=== PATIENT | female | born 2000 | race Caucasian/White ===

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

== ENCOUNTER 2019-04-22 13:31 | Emergency (ER) | payer MEDICAID, SELFPAY ==
[2019-04-22 13:32] VITALS: BP 122/70; PULSE 112; RESP 16; TEMP 37; O2SAT 95; BMI 42.5
--- NOTE | 2019-04-22 13:35 | ED.RN ---
PT REPORTS CHEST WALL PAIN WITH COUGHING.
--- NOTE | 2019-04-22 13:45 | EKG12_ITS ---
Test Reason : CP Blood Pressure : / mmHG Vent. Rate : 099 BPM Atrial Rate : 099 BPM P-R Int : 146 ms QRS Dur : 094 ms QT Int : 328 ms P-R-T Axes : 027 024 025 degrees QTc Int : 420 ms Normal sinus rhythm Normal ECG Confirmed by MARTY BORREGO MD ([id number]), editor trade journal PRISCA HONRE ([id number]) on 04/25/2019 9:54:54 AM Referred By: BELKIS Confirmed By:MARTY BORREGO MD
[2019-04-22] MEDS: Albuterol 2.5 MG/3 ML VIAL.NEB. INHALATION (14:08)
[2019-04-22] MEDS: Ipratropium/Albuterol Sulfate 3 ML AMPUL.NEB INHALATION (14:08)
[2019-04-22 14:09] VITALS: PULSE 100; RESP 26
--- NOTE | 2019-04-22 14:09 | ED.VISSUMM ---
- ER Visit Summary Date of Service: 04/22/19 Chief Complaint: Cough and shortness of breath History of Present Illness: The patient is a 19 F who notes that her son has a upper respiratory infection and is being seen. She states that 3 days ago she did have a runny nose. She developed shortness of breath and some anterior chest discomfort beginning yesterday. This is worsened. She is a former smoker. She denies any fevers. She notes the cough is productive. Patient states she has no history of asthma has never been diagnosed with chronic bronchitis or emphysema. The patient states that her anterior chest is quite sore especially with coughing Physical Examination: Afebrile vital signs stable Gen: Well-nourished well-developed Head: Normocephalic atraumatic Eyes: Perrl EOMI ENT: TMs clear + rhinorrhea moist mucous membranes Neck: Supple no lymphadenopathy no JVD nontender CVS: Regular rate tachycardic rhythm no murmurs normal S1-S2 Respiratory: No distress patient has bilaterally diminished breath sounds and expiratory wheezing chest nontender Abdomen: Soft nontender nondistended normal bowel sounds no masses Back: Nontender Extremity: Nontender no edema Skin: Normal color no rash Neuro: alert orientated ?3 CN II-XII intact normal strength sensation reflexes gait cerebellar Psych: Normal affect normal mood Emergency Department Course and Treatment: Patient received breathing treatments and prednisone. Repeat examination was obtained. The wheezing has resolved. The patient will be discharged home with albuterol MDI and prednisone. Patient to return if worsening or concerns Impression: 1. Acute viral respiratory illness 2. Acute bronchospasm This note was generated with [employer] dictation software. It may contain incorrect words, spelling, and punctuation that were not noted in review of the chart prior to signing ED Disposition - Plan for ED Patient: Disposition: Home or Assisted Living Instructions: BRONCHITIS with Wheezing (Adult) Prescriptions: predniSONE tablet 60 mg PO DAILY #12 tab Transmission Status: Received by BENJI EVANS RD Albuterol Inhaler [Ventolin Hfa] 2 puff INHALATION Q4H PRN PRN #1 inhaler PRN Reason: Wheezing Transmission Status: Received by BENJI EVANS RD Referrals: Lamont Read MD [Primary Care Provider] - As Needed
--- NOTE | 2019-04-22 14:12 | RAD_ITS ---
STUDY: X-RAY CHEST REASON FOR EXAM: Female, 19 years old. Wheezing. Cough and chest congestion. TECHNIQUE: PA and lateral views of the chest. COMPARISON: Comparison is made with prior study September 05, 2017. FINDINGS: Mild increased markings in the lingular segment of the left upper lobe suggestive of early infiltrate. There is no demonstrated pleural abnormality. Normal size heart. Normal mediastinum and cory. Normal visualized pulmonary arteries. Normal visualized aortic arch and descending thoracic aorta. Normal visualized thoracic spine. Normal visualized ribs, clavicles, and shoulders. There is no demonstrated abnormality of the visualized soft tissue structures of the upper abdomen. RAD/Chest PA and Lateral IMPRESSION: Findings suggestive of early infiltrate in the lingular segment of the left upper lobe. Electronically Signed: Leno Cortes, at 15:09 EDT , Service support ,
[2019-04-22] MEDS: predniSONE 20 MG Tablet 60 MG PO (14:49)
[2019-04-22 15:10] VITALS: PULSE 115; O2SAT 97
== END 2019-04-22 15:10 | disposition home or self-care (01) ==
PROVIDERS: Emergency Provider Emergency Medicine; Family Provider Pediatrics; PCP Pediatrics
DX: J06.9 Acute upper respiratory infection, unspecified (principal); J98.01 Acute bronchospasm; Z87.891 Personal history of nicotine dependence
CPT/HCPCS: 71046; 93005; 94640; 99283

== ENCOUNTER 2019-06-28 19:51 | Emergency (ER) | payer MEDICAID, SELFPAY ==
[2019-06-28 19:52] VITALS: BP 142/86; PULSE 97; RESP 18; TEMP 36.3; O2SAT 95; BMI 41.8
[2019-06-28] MEDS: 0.9% Normal Saline 1,000 ML 1000 ML IV (20:37)
[2019-06-28] MEDS: Morphine 4 MG/ML Syringe IV (20:38)
[2019-06-28] MEDS: Ondansetron 4 MG/2 ML Vial IV (20:38)
[2019-06-28 20:48] LABS: Absolute Lymphocyte Count 2.89 X10^3/uL (0.83-4.51); Absolute Neutrophil Count 9.5 X10^3/uL (2.0-7.7); Basophil# 0.06 X10^3/uL; Basophil% 0.4 % (0-1); Eosinophil# 0.27 X10^3/uL; Hemoglobin 13.5 g/dL (12.0-15.0); Lymphocyte # 2.89 X10^3/ul (4.0); Lymphocyte % 20.9 % (19-41); Mean Corp Hgb Conc 32.9 g/dL (32-36); Mean Corpuscular Hgb 28.4 pg (27.0-32.0); Mean Corpuscular Volume 86.1 fL (81-99); Mean Platelet Vol. 10.2 fl (6.2-12.0); Monocyte% 7.2 % (0-10); NRBC Flagged by Analyzer 0 % (0-5); Neutrophil # 9.52 X10^3/uL (2.7-7.7); Neutrophil % 68.9 % (47-70); Platelet Count 259 K/mm3 (150-450); RBC Distribution Width CV 13.3 % (11.6-14.6); RBC Distribution Width SD 41.7 fl (35.1-43.9); Red Blood Count 4.76 M/mm3 (4.2-5.4); White Blood Count 13.8 K/mm3 (4.4-11.0)
[2019-06-28 21:02] LABS: Anion Gap 7 (5-15); BUN 12 mg/dL (7-18); BUN/Creat Ratio 15.9 RATIO (10-20); Calcium,Total 9.1 mg/dL (8.5-10.1); Chloride 107 mmol/L (98-107); Creatinine, Serum 0.76 mg/dL (0.55-1.02); EST Glomerular Filtration Rate 103 mL/min (>60); Est Glom Filt Rate - Afr Amer 125 mL/min (>60); Estimated Creatinine Clearance 119.11 ml/min; Glucose 104 mg/dL (74-106); Potassium 3.4 mmol/L (3.5-5.1); Sodium Level 141 mmol/L (136-145)
[2019-06-28 21:22] LABS: Bacteria 0 SEEN /hpf (None Seen); Mucous, Urine 0 SEEN /hpf (<or=2+); Red Blood Cells-Urine 0 SEEN /hpf (0-5); White Blood Cells 0 SEEN /hpf (0-5)
[2019-06-28 21:26] LABS: Color, Urine Yellow (Yellow); Glucose, Dipstick Normal (Normal); Ketone-Dipstick 5 mg/dl (Negative); Leukocyte Esterase-Dipstick Negative /ul (Negative); Nitrite-Dipstick Negative (Negative); Occult Blood-Urine Negative /ul (Negative); Protein-Dipstick Negative (Negative); Specific Gravity, Urine 1.015 (1.002-1.030); Urine Bilirubin Dipstick Negative (Negative); Urine Clarity Clear (Clear); Urine Urobilinogen Normal (Normal); Urine pH 6.5 (5.0 - 8.0)
[2019-06-28 21:27] LABS: Internal QC Validated? YES +Cl - CLEAR BKGD; Pregnancy, Urine Negative Negative
[2019-06-28 21:35] LABS: Squamous Epithelial Cells - UA 0-5 SEEN /hpf (5-10)
--- NOTE | 2019-06-28 21:38 | CT_ITS ---
STUDY: CT ABDOMEN AND PELVIS WITH CONTRAST REASON FOR EXAM: Female, 19 years old. Lower abdominal pain RADIATION DOSAGE (If Supplied By Facility): CTDIvol = ( 17.08 ) mGy, DLP = ( 1279.55 ) mGycm TECHNIQUE: Transaxial images were obtained from the dome of the diaphragm to the symphysis pubis without oral contrast. IV Isovue 370 100 was administered. Sagittal and coronal images were reconstructed. Individualized dose optimization techniques were used for this CT. COMPARISON: None. FINDINGS: The visualized lung bases are unremarkable. Normal liver. No intrahepatic biliary duct dilatation or liver mass. Normal gallbladder and extrahepatic biliary system. Normal spleen. Normal pancreas. Normal bilateral adrenal glands. Normal right kidney. Normal left kidney. No hydronephrosis or renal masses. No large stones. Normal visualized stomach. Normal small intestine. Normal colon. No bowel dilatation or obstruction. No free air or free fluid. The appendix is visualized and appears normal. Normal abdominal aorta. Normal inferior vena cava. Normal retroperitoneum. Normal urinary bladder. An IUD is present in the uterus. Grossly unremarkable uterus. There is mild to moderate prominence of the left fallopian tube and adnexa with a small amount of inflammatory stranding suggesting inflammation/infection. A small amount of free fluid is present in the lower pelvis maximally measures 7.44 x 3.55 cm. This is compatible with serous fluid rather than an abscess. A tiny calcified nodule is present near the endocervical junction in the anterior myometrium. Normal abdominal wall. Normal osseous structures. CT/Abdomen/Pelvis W IV Cont ONLY IMPRESSION: Pelvic inflammatory disease suspected 1. There is mild to moderate prominence of the left fallopian tube and adnexa with a small amount of inflammatory stranding suggesting inflammation/infection. 2. A small amount of free fluid is present in the lower pelvis maximally measures 7.44 x 3.55 cm. This is compatible with serous fluid rather than an abscess. Electronically Signed: Vineet Roberts MD at 22:45 EST , Service support ,
--- NOTE | 2019-06-28 23:06 | ED.DCSUM_ITS ---
- ER Visit Summary Date of Service: 06/28/19 Chief Complaint: Abdominal pain History of Present Illness: The patient is a 19 F with lower abdominal pain that started this morning. The pain is in her suprapubic area and does not radiate. Associated with nausea, vomiting, and diarrhea. Denies any urinary or WEIGHT GUESSER symptoms. She does have a history of IUD placement and is concerned that the pain might be from this. This was placed 9 months ago, and she has not had other issues with it so far. Physical Examination: Afebrile and vital signs unremarkable. Lower abdomen is tender to palpation in the suprapubic region. No guarding or rebound. Test Results: White count 13.8, potassium 3.4, urinalysis unremarkable. test negative. Emergency Department Course and Treatment: Patient presents with suprapubic pain. I was concerned for UTI, however she did not have the classic symptoms. Unfortunately, her lab work showed a leukocytosis and no evidence of urinary infection. Further evaluation was indicated. CT was performed. This showed left fallopian tube inflammation/infection concerning for PID. There is also suspected serous pelvic fluid. I spoke with the patient. She has no concern for STD. I did inform her that I will check for gonorrhea and chlamydia. Testing is pending. We will treat with antibiotics. She received doxycycline and ceftriaxone. She will follow-up with her HEAD OF [employer]ORE [employer]PERATIONS for recheck. She was advised that some patients can require hospitalization. She will return if worse or if new issues develop. Risks such as infertility were discussed. She will talk to her HEAD OF [employer]ORE [employer]PER[employer] about her or not she needs to remove her IUD. Patient was prescribed Motrin, Zofran, and doxycycline. She will not be breast- feeding. Treatment Plan: As above Disposition: Discharge Impression: 1. Pelvic inflammatory disease This note was generated with [place] [employer] software. It may contain incorrect words, spelling, and punctuation that were not noted in review of the chart prior to signing ED Disposition - Plan for ED Patient: Referrals: Care Physician,No Primary [Primary Care Provider] -
[2019-06-28 23:09] VITALS: BP 130/64; PULSE 82; RESP 16; O2SAT 95
--- NOTE | 2019-06-28 23:10 | ED.DEP ---
ED Disposition - Plan for ED Patient: Instructions: What Is Pelvic Inflammatory Disease? Prescriptions: Doxycycline 100 mg PO BID #28 cap Prescription Printed Ibuprofen [Motrin] 800 mg PO TID PRN PRN #20 tab PRN Reason: Pain Or Fever Prescription Printed Ondansetron [Zofran Odt] 4 mg PO Q8H PRN PRN #10 tab PRN Reason: Nausea Prescription Printed Additional Instructions: Follow up with your OBGYN
[2019-06-28] MEDS: Doxycycline 100 MG CAPSULE PO (23:27)
[2019-06-28] MEDS: Ceftriaxone 500 MG Vial 250 MG IM (23:27)
[2019-06-28 23:53] VITALS: BP 130/64; PULSE 82; RESP 16; O2SAT 95
[2019-06-29 00:54] LABS: Chlamydia Trachomatis by PCR Negative (Negative); Neisserai gonorrhoeae by PCR Negative (Negative)
[2019-06-29 00:55] LABS: Probe Check PASS; Sample Adequacy Control PASS; Specimen Processing Control PASS
== END 2019-06-28 23:53 | disposition home or self-care (01) ==
LOC: ED 20:35
PROVIDERS: Emergency Provider Emergency Medicine
DX: N73.9 Female pelvic inflammatory disease, unspecified (principal); R11.2 Nausea with vomiting, unspecified; R19.7 Diarrhea, unspecified; Z97.5 Presence of (intrauterine) contraceptive device; Z72.0 Tobacco use
CPT/HCPCS: 74177; 80048; 81001; 81025; 85025; 87491; 87591; 96361; 96372; 96374; 96375; 99284; J7030; Q9967; A4216; J2405

== ENCOUNTER 2020-04-02 22:48 | Emergency (ER) | payer MEDICAID, SELFPAY ==
[2020-04-02 22:49] VITALS: BP 134/82; PULSE 90; RESP 18; TEMP 36.7; O2SAT 97; BMI 43.0
--- NOTE | 2020-04-02 23:15 | RAD_ITS ---
STUDY: X-RAY - LEFT FOOT CLINICAL: Female, 20 years old. FALL DOWN STAIRS TODAY, L FOOT PAIN TECHNIQUE: 3 view(s) of the foot. COMPARISON: None. FINDINGS: Normal talus, calcaneus, and tarsal bones. Normal visualized subtalar, talonavicular, calcaneocuboid, tarsal and tarsometatarsal articulations. Normal metatarsi. Normal metatarsophalangeal joint of the great toe. Normal tibial and fibular sesamoid bones. Normal interphalangeal joint of the great toe. Normal phalanges of the great toe. Normal second through fifth metatarsophalangeal joints. Normal interphalangeal joints and phalanges of the lesser toes. The soft tissue structures are unremarkable. RAD/Foot min 3 Views IMPRESSION: No acute osseous injury is evident. Electronically Signed: Geronimo Grier MD at 23:47 EDT Tel , Service support ,
--- NOTE | 2020-04-02 23:15 | RAD_ITS ---
STUDY: X-RAY - LEFT ANKLE REASON FOR EXAM: Female, 20 years old. FALL DOWN STAIRS TODAY, L ANKLE PAIN TECHNIQUE: 3 view(s) of the ankle. COMPARISON: None. FINDINGS: Normal visualized distal tibia and fibula. Normal medial and lateral malleoli. Normal tibiotalar articulation and ankle mortise. Normal visualized talus and calcaneus. The visualized subtalar, talonavicular, calcaneocuboid and tarsal articulations are normal. The soft tissue structures are unremarkable. RAD/Ankle min 3 Views IMPRESSION: No acute osseous injury is evident. Electronically Signed: Geronimo Grier MD at 23:46 EDT Tel , Service support ,
[2020-04-02] MEDS: Naproxen 500 MG Tablet PO (23:18)
[2020-04-03 00:16] VITALS: PULSE 82; RESP 5; O2SAT 98
--- NOTE | 2020-04-03 00:17 | ED.VISSUMM ---
- ER Visit Summary Date of Service: 04/03/20 Chief Complaint: Left ankle and foot pain History of Present Illness: The patient is a 20 F with no primary care physician. She reports approximate 1 hour ago she fell down 3 steps. She reports that she has an isolated injury to her left ankle and foot. She has pain is 1010 at worst and 7-10 currently. She describes as a sharp. Is worsened by walking relieved by rest. Denies any paresthesias distally. She denies any other injuries. No blow to the head or loss of consciousness. No neck or back pain. Physical Examination: Vitals: Stable. Afebrile. Neck: No vertebral tenderness. Full ROM without difficulty. Cleared by NEXUS criteria. Back: No vertebral tenderness. General: A&O x 3. NAD. Cardiovascular exam: Regular rate and rhythm, no murmur, rub or gallop. Respiratory exam: Chest nontender. No crepitus. Clear to auscultation bilaterally. No wheezes or stridor. Abdominal exam: Soft, nontender, nondistended, normal bowel sounds. No pain in RUQ or LUQ specifically. No peritoneal signs. Extremity: Moderate tenderness palpation over the lateral malleolus and just distal to this. She has no pain over the base of fifth metatarsal or proximal fibula. 2+ dorsalis pedis pulse. Test Results: Clinical Impression(s) from Imaging Studies Ankle X-Ray 04/02/20 23:15 IMPRESSION: No acute osseous injury is evident. Electronically Signed: Geronimo Grier MD at 23:46 EDT Tel , Service support , Foot X-Ray 04/02/20 23:15 IMPRESSION: No acute osseous injury is evident. Electronically Signed: Geronimo Grier MD at 23:47 EDT Tel , Service support , Emergency Department Course and Treatment: Patient was treated with naproxen and placed on crutches. Treatment Plan: Patient will be discharged instructed to follow-up Dr. Terry Cuadra in 1 week if not improving. Return to the emergency department for any worsening symptoms. Disposition: To home in improved and stable condition. Impression: 1. Fall. 2. Left ankle sprain. This note was generated with [place] [employer] dictation software. It may contain incorrect words, spelling, and punctuation that were not noted in review of the chart prior to signing ED Disposition - Plan for ED Patient: Disposition: Home or Assisted Living Instructions: ED Sprain Ankle Prescriptions: Naproxen [Naprosyn] 500 mg PO BID #14 tab Prescription Printed Referrals: Terry Moreno MD [STAFF PHYSICIAN] - 1 Week if not improving
== END 2020-04-03 00:36 | disposition home or self-care (01) ==
LOC: ED 23:28
PROVIDERS: Emergency Provider Emergency Medicine
DX: S93.402A Sprain of unspecified ligament of left ankle, initial encounter (principal); W10.9XXA Fall (on) (from) unspecified stairs and steps, initial encounter; Y93.9 Activity, unspecified; Y92.9 Unspecified place or not applicable; Y99.9 Unspecified external cause status
CPT/HCPCS: 73610; 73630; 99284

== ENCOUNTER 2020-11-20 08:01 | Emergency (ER) | payer MEDICAID, SELFPAY ==
[2020-11-20 08:02] VITALS: BP 141/70; PULSE 99; RESP 18; TEMP 35.4; O2SAT 98; BMI 43.0
--- NOTE | 2020-11-20 08:10 | ED.DCSUM_ITS ---
History of Present Illness Chief Complaint: Lower Extremity Injury Informant: Patient Occurred: Today - JPTA Fall down steps #: 1 Location: left ankle Quality of Pain: Aching Current Severity: Moderate Maximum Severity: Severe Worsened by: bearing weight Relieved by: remaining still Associated Symptoms: Negative for: Parasthesias, Weakness, Loss of function, Inability to ambulate, Loss of consciousness, Amnesia Narrative: Patient was coming down the stairs on the last 1, her new puppy had urinated on the floor and she did not realize it, as she stepped down off of the last step her foot slipped on the puddle of urine, going out ahead of her, and she fell with her left lower extremity flexed at the knee and internally rotated to her ankle without behind and outside, the majority of her pain is in the Achilles in the lateral aspect of her ankle. Very significant trouble bearing weight but she was able to hobble. No other injuries. No anticoagulation. - Past Medical History (1) Anxiety and depression Status: Chronic (2) PTSD (post-traumatic stress disorder) Status: Chronic Past Medical History - Allergies and Home Meds Allergies/Adverse Reactions: Allergies AMHARIC DRESSSING Allergy (Uncoded 11/20/20 08:04) Hives Primary Care Physician: Pancho Soler MD [Primary Care Provider] - Smoking Status: Former smoker Review of Systems General: Denies: Chills, Fever, Sweats Musculoskeletal: Reports: Extremity Pain. Denies: Neck pain, Back pain Skin: Denies: Rash, Wounds Neurological: Denies: Headache, Weakness, Numbness Physical Exam Vital Signs/Narrative: Vital Signs Temp Pulse Resp BP Pulse Ox 11/20/20 08:02 95.8 F L 99 18 141/70 H 98 Inital Vital Signs reviewed: Yes General: Well nourished, Well developed, Obese, - - No acute distress Head: Normocephalic, Atraumatic Extremeties: Limited range of motion left ankle, good range of motion all other joints. Tender at the lateral malleolus but not the medial or the base of the fifth metatarsal, or the calcaneus, or anywhere else in the foot. There is some mild swelling around the lateral malleolus. The rest of the tib-fib is nontender. Skin: Normal color, No rash, No Trauma - Skin intact Neurological: Alert, Oriented x3, Cranial nerves II-XII grossly intact, Normal Strength, Normal Sensation Psychological: Normal affect, Normal Mood Diagnostic/Tx/Re-eval Clinical Impression(s) from Imaging Studies Ankle X-Ray 11/20/20 08:15 IMPRESSION: Chronic avulsive irregularity at the dorsal aspect of navicular. No demonstrated recent fracture. Electronically Signed: Kayode Noriega MD at 8:38 EDT Tel , Service support , - Medical Decision Making My interpretation 3 view x-ray of the left ankle shows no acute fractures or dislocations. Patient was reassured, I think it would be reasonable to treat her as an ankle sprain. Whenever I forcibly invert her foot it recreates her significant lateral ankle pain. Placed in an Aircast, given crutches, ice pack, Naprosyn, and a prescription. ED Disposition - Plan for ED Patient: Disposition: Home or Assisted Living Diagnosis: Left ankle sprain Instructions: ED Ankle Sprain (Adult) Prescriptions: Naproxen [Naprosyn] 500 mg PO BID PRN #20 tablet Transmission Status: Pending to [id number] Referrals: Pancoh Soler MD [Primary Care Provider] - 1 Week if not improving
--- NOTE | 2020-11-20 08:15 | RAD_ITS ---
STUDY: X-RAY - LEFT ANKLE REASON FOR EXAM: Left ankle pain, left ankle injury. TECHNIQUE: 3 view(s) of the ankle. COMPARISON: Radiographs 04/02/2020. FINDINGS: Normal visualized distal tibia and fibula. Normal medial and lateral malleoli. Normal tibiotalar articulation and ankle mortise. Normal visualized talus and calcaneus. There is chronic avulsive irregularity at the dorsal aspect of the navicular as on the prior study. The visualized subtalar, talonavicular, calcaneocuboid and tarsal articulations are normal. There is mild soft tissue swelling overlying the lateral malleolus. RAD/Ankle min 3 Views IMPRESSION: Chronic avulsive irregularity at the dorsal aspect of navicular. No demonstrated recent fracture. Electronically Signed: Kayode Noriega MD at 8:38 EDT Tel , Service support ,
[2020-11-20] MEDS: Naproxen 500 MG Tablet PO (09:09)
[2020-11-20 09:10] VITALS: BP 122/71; PULSE 68; RESP 16
== END 2020-11-20 09:40 | disposition home or self-care (01) ==
PROVIDERS: Emergency Provider Emergency Medicine; PCP Family Medicine
DX: S93.402A Sprain of unspecified ligament of left ankle, initial encounter (principal); W10.9XXA Fall (on) (from) unspecified stairs and steps, initial encounter; Y93.9 Activity, unspecified; Y92.9 Unspecified place or not applicable; Y99.9 Unspecified external cause status; F32.9 Major depressive disorder, single episode, unspecified; F41.9 Anxiety disorder, unspecified; F43.12 Post-traumatic stress disorder, chronic; X58.XXXA Exposure to other specified factors, initial encounter; Z79.899 Other long term (current) drug therapy; E66.9 Obesity, unspecified; Z87.891 Personal history of nicotine dependence
CPT/HCPCS: 73610; 99284

== ENCOUNTER 2021-08-09 13:27 | Emergency (ER) | payer MEDICAID, SELFPAY ==
[2021-08-09 13:28] VITALS: BP 105/71; PULSE 109; RESP 18; TEMP 35.9; O2SAT 97; BMI 45.1
--- NOTE | 2021-08-09 13:58 | EX.ED.DYSGE1 ---
HPI History of Present Illness Chief Complaint: Sore Throat Informant: patient Narrative Narrative: 21-year-old female states that she woke up during the night and had a scratchy throat. But this morning it was more painful and she had a fever. Patient states that it looks very red. She notes no cough no runny nose vomiting or diarrhea. She states she had strep throat earlier in the year. She called her work and told him that she believes she has strep throat and they said that she needs to have a Covid test because she had a fever. [facility] Medical History (Updated 08/09/21 @ 14:[address] Rudy Spring DO) Anxiety and depression PTSD (post-traumatic stress disorder) Home Medications bupropion HCl (smoking deter) 300 mg PO DAILY 04/02/20 [History Last Taken Unknown] buspirone 10 mg PO TID 04/02/20 [History Last Taken Unknown] escitalopram oxalate 10 mg PO DAILY 04/02/20 [History Last Taken Unknown] trazodone 100 mg PO QHS 04/02/20 [History Last Taken Unknown] naproxen 500 mg PO BID #14 tab 04/03/20 [Rx Last Taken Unknown] naproxen 500 mg PO BID PRN #20 tablet 11/20/20 [Rx Last Taken Unknown] penicillin V potassium 500 mg PO BID #20 tab 08/09/21 [Rx Last Taken Unknown] Allergy/AdvReac Type Severity Reaction Status Date / Time SLOVENIAN DRESSSING Allergy Hives Uncoded 08/09/21 13:28 Social History (Updated 08/09/21 @ 13:[address] Rudy Spring DO) Smoking Status: Never smoker substance use type: does not use ROS ROS ED Constitutional Constitutional ED: Reports fever(s); Denies chills or weight loss Eyes Eyes: Denies change in vision or diplopia ENT ENT ED: Reports sore throat; Denies ear pain or rhinorrhea Cardiovascular Cardiovascular: Denies chest pain, orthopnea, palpitations or racing heartbeat Respiratory/Chest Respiratory/Chest: Denies cough, dyspnea or orthopnea Gastrointestinal Gastrointestinal: Denies abdominal pain, diarrhea, nausea or vomiting Genitourinary Genitourinary ED: Denies dysuria, hematuria or urinary frequency Musculoskeletal Musculoskeletal: Denies arthralgias or myalgias Integumentary Denies abscess or rash Neurologic Neurologic: Denies headache(s) or weakness Psychiatric Psychiatric: Denies anxiety, depression, suicidal ideation or suicidal thoughts Endocrine Endocrinology: Denies polydipsia, polyphagia or polyuria Allergic/Immunologic Allergic/Immunologic ED: Denies mouth swelling, tongue swelling or urticaria EXAM Physical Exam Const Vital Signs: 08/09/21 13:28 Temperature 96.6 F L Temperature Source Temporal Pulse Rate 109 H Respiratory Rate 18 Blood Pressure 105/71 Blood Pressure Mean 82 Pulse Ox 97 Oxygen Delivery Method Room Air Positive well nourished, well developed and obese General Appearance ED: well developed Nutritional Appearance: obese HEENT Reports normocephalic, head/scalp atraumatic, TM's clear and moist mucous membranes HEENT Narrative: Oral pharyngeal erythema with bilateral tonsillar exudate and swelling. No obvious abscess seen. Negative for trauma Tympanic Membrane ED: Yes TM's clear Eyes PERRL and EOMs intact bilaterally Neck supple and no JVD Neck Narrative: Anterior lymphadenopathy Resp normal respiratory effort and clear to auscultation bilaterally Cardio regular rate, regular rhythm and no murmurs GI normal to inspection, nondistended, normoactive bowel sounds and non-tender Palpation: soft Back/Spine no CVA tenderness and normal ROM Extremity normal to inspection General Extremety ED: Negative for edema General Extremity: Negative for edema Neuro oriented x3 and CN's II-XII intact bilaterally Sensorium / Orientation: alert Motor Exam: strength 5/5 throughout Psych mental status grossly normal Mood & Affect: Negative for depressed or tearful Skin no rashes or lesions noted and no wounds MDM MDM MDM Narrative Medical decision making narrative: The patient meets [facility] criteria for strep throat. She needs a Covid test I am not can to make her wait for the results. I am going to start her on penicillin. She will receive a dose of Decadron here in the department. Discharge Plan Triage Chief Complaint: Sore Throat ED Provider: Rudy Spring Dx/Rx/DC Orders Clinical Impression: Acute streptococcal pharyngitis Instructions: ED Pharyngitis, Strep (Presumed) Prescriptions: New penicillin V potassium 500 MG tablet 500 mg PO BID Qty: 20 RF: 0 No Action buspirone 5 MG tablet 10 mg PO TID RF: 0 trazodone 100 MG tablet 100 mg PO QHS RF: 0 escitalopram oxalate 10 MG tablet 10 mg PO DAILY RF: 0 bupropion HCl (smoking deter) 150 MG tablet extended release 12 hr 300 mg PO DAILY RF: 0 naproxen 500 MG tablet 500 mg PO BID Qty: 14 RF: 0 naproxen 500 MG tablet 500 mg PO BID PRN Qty: 20 RF: 0 Primary Care Provider: Pancho Soler Referrals: Pancho Soler MD [Primary Care Provider] - As Needed Disposition Disposition: Home, Self Care
[2021-08-09] MEDS: dexAMETHasone 10 MG/ML Vial PO.IVFORM (14:08)
== END 2021-08-09 14:18 | disposition home or self-care (01) ==
LOC: ED 14:05
PROVIDERS: Emergency Provider Emergency Medicine; PCP Family Medicine
DX: J02.0 Streptococcal pharyngitis (principal); Z20.822 Contact with and (suspected) exposure to COVID-19; F43.10 Post-traumatic stress disorder, unspecified; F32.A Depression, unspecified; F41.9 Anxiety disorder, unspecified; E66.9 Obesity, unspecified; Z79.1 Long term (current) use of non-steroidal anti-inflammatories (NSAID); Z79.899 Other long term (current) drug therapy
CPT/HCPCS: 87426; 99283

== ENCOUNTER → 2022-05-10 | Outpatient (CLI) | payer MEDICAID, SELFPAY ==
[2022-05-10 12:23] LABS: Absolute Lymphocyte Count 2.03 X10^3/uL (0.83-4.51); Absolute Neutrophil Count 9.3 X10^3/uL (2.0-7.7); Basophil# 0.04 X10^3/uL; Basophil% 0.3 % (0-1); Eosinophils% 0.8 % (0-5); Hematocrit 38.6 % (37-47); Lymphocyte # 2.03 X10^3/ul (0.83-4.51); Lymphocyte % 16.6 % (19-41); Mean Corp Hgb Conc 33.7 g/dL (32-36); Mean Corpuscular Hgb 29.3 pg (27.0-32.0); Mean Corpuscular Volume 86.9 fL (81-99); Mean Platelet Vol. 10.7 fl (6.2-12.0); Monocyte# 0.71 X10^3/uL; Monocyte% 5.8 % (0-10); NRBC Flagged by Analyzer 0 % (0-5); Neutrophil # 9.26 X10^3/uL (2.7-7.7); Platelet Count 280 K/mm3 (150-450); RBC Distribution Width CV 13.2 % (11.6-14.6); RBC Distribution Width SD 41.3 fl (35.1-43.9); Red Blood Count 4.44 M/mm3 (4.2-5.4); White Blood Count 12.2 K/mm3 (4.4-11.0)
[2022-05-10 13:19] LABS: HIV - WCH Non-Reactive (Nonreactive); Hepatitis B Surface Antigen Non-Reactive (Nonreactive); Hepatitis C Antibody Non-Reactive (Nonreactive); Rubella IgG Equiv (Nonreactive); Syphilis Antibodies Non-reactive
[2022-05-11 09:08] LABS: V-Zoster IgG (Immunity) < 135 index (Immune >165)
[2022-05-11 21:07] LABS: Chlamydia By Nucleic Acid AMP Negative (Negative)
[2022-05-12 16:21] LABS: Gonococcus By Nucleic Acid AMP Negative (Negative)
== END | disposition home or self-care (01) ==
LOC: WOBLAB 10:53
PROVIDERS: PCP Family Medicine; Visit Provider Obstetrics & Gynecology
DX: Z34.81 Encounter for supervision of other normal pregnancy, first trimester (principal)
CPT/HCPCS: 36415; 85025; 86703; 86762; 86780; 86787; 86803; 87086; 87088; 87340; 87491; 87591

== ENCOUNTER 2022-06-06 18:27 | Emergency (ER) | payer MEDICAID, SELFPAY ==
[2022-06-06 18:28] VITALS: BP 120/58; PULSE 95; RESP 16; TEMP 36.4; O2SAT 98; BMI 42.3
[2022-06-06 20:04] VITALS: BP 132/82; PULSE 66; RESP 12; O2SAT 97
--- NOTE | 2022-06-06 20:28 | EDS_ITS ---
HPI HPI - Female History of Present Illness Chief Complaint: Detail of Chief Complaint: Hyperemesis gravidarum Informant: patient Associated Symptoms Associated Symptoms: Negative for Dysuria, Frequency, Urgency or Hematuria Test: Positive P: 1 Ab: 0 Narrative Narrative: ShePatient is a 22-year-old who presents with hyperemesis gravidarum. She is present on Phenergan. States Phenergan's not helping. She has decreased urine output. She had a 15 pound weight loss. She is 12 weeks gestation. She lost 40 pounds with her first due to hyperemesis gravidarum. She denies fever, chills night sweats. She denies headache, visual, ocular auditory symptoms. Denies cardiac or respiratory symptoms. Prior similar symptoms: Yes Recent Illness/Hospitalization: No PFSH PFSH Medical History Anxiety and depression PTSD (post-traumatic stress disorder) Home Medications ondansetron 4 mg disintegrating tablet 4 mg PO Q8H PRN PRN Nausea #20 tabs 06/06/22 [Rx Last Taken Unknown] Allergy/AdvReac Type Severity Reaction Status Date / Time NEPALESE DRESSSING Allergy Hives Uncoded 06/06/22 18:30 Social History (Updated 06/06/22 @ 21:[address] Som Arndt MD) household members: significant other and children Smoking Status: Never smoker substance use type: does not use ROS ROS ED Constitutional Constitutional ED: Denies chills, fever(s), subjective or sweats Eyes Eyes: Denies blurry vision, change in vision or diplopia ENT ENT ED: Denies ear pain, rhinorrhea or sore throat Cardiovascular Cardiovascular: Denies chest pain, palpitations or racing heartbeat Respiratory/Chest Respiratory/Chest: Denies cough, dyspnea or dyspnea on exertion Gastrointestinal Gastrointestinal: Reports nausea and vomiting; Denies abdominal pain, constipation, diarrhea or melena Genitourinary Genitourinary ED: Denies dysuria, hematuria or urinary frequency Musculoskeletal Musculoskeletal: Denies arthralgias, myalgias or neck pain Integumentary Denies abscess or Abrasions Neurologic Neurologic: Reports weakness; Denies headache(s) or paresthesias Psychiatric Psychiatric: Denies anxiety Endocrine Endocrinology: Denies heat intolerance, polydipsia, polyphagia or polyuria Hematologic/Lymphatic Hematologic/Lymphatic: Denies easy bleeding or easy bruising EXAM Physical Exam Const Vital Signs: 06/06/22 18:28 06/06/22 20:04 Temperature 97.5 F L Temperature Source Temporal Pulse Rate 95 66 Respiratory Rate 16 12 Blood Pressure 120/58 L 132/82 H Blood Pressure Mean 78 98 Pulse Ox 98 97 Oxygen Delivery Method Room Air Room Air Positive well nourished, well developed and obese General Appearance ED: well developed; Negative for pallor Nutritional Appearance: obese HEENT Reports TM's clear and dry mucous membranes Tympanic Membrane ED: Yes TM's clear Mouth ED: Yes dry mucous membranes Mouth: dry mucous membranes Eyes PERRL and EOMs intact bilaterally General Eye ED: Negative for pale conjunctiva or scleral icterus Neck no lymphadenopathy, supple and no JVD Chest Wall inspection of chest normal Resp normal respiratory effort and clear to auscultation bilaterally Cardio regular rate, regular rhythm, S1 normal heart sound, no murmurs and no JVD GI normal to inspection, nondistended, normoactive bowel sounds, soft to palpation, non-tender, non-distended and no masses Back/Spine no CVA tenderness Extremity normal to inspection and full ROM Neuro oriented x3, CN's II-XII intact bilaterally and no sensory deficits noted Sensorium / Orientation: alert Motor Exam: strength 5/5 throughout Psych mental status grossly normal Skin no rashes or lesions noted and no wounds General Skin Exam: Negative for jaundice or pallor MDM MDM MDM Narrative Medical decision making narrative: Patient with hyperemesis gravidarum. We will treat with IV Zofran since her sales manager [place] has not treated her with Zofran yet. Liter of normal saline was ordered. Patient metabolic panel to assess renal function, CO2 anion gap and electrolytes. UA was obtained to assess for ketones. Patient was reassessed. She reports marked improvement. She able drink a can of Sprite. She is presently eating mashed potatoes. Lab Data Attestation: I reviewed the patient's lab results. Labs: Laboratory Results - last 24 hr 06/06/22 06/06/22 20:15 20:50 Sodium 137 Potassium 3.2 L Chloride 106 Carbon Dioxide 24.0 Anion Gap 7 BUN 6 L Creatinine 0.73 Estim Creat Clear Calc 116.55 Est GFR (MDRD) Af Amer 126 Est GFR (MDRD) Non-Af 104 BUN/Creatinine Ratio 8.2 L Glucose 92 Calcium 9.3 Urine Color Yellow Urine Clarity Clear Urine pH 6.5 Ur Specific [place] 1.015 Urine Protein Negative Urine Glucose (UA) Normal Urine Ketones Negative Urine Occult Blood Negative Urine Nitrite Negative Urine Bilirubin Negative Urine Urobilinogen 1 H Ur Leukocyte Esterase Negative Discharge Plan Triage Chief Complaint: ED Provider: Som Arndt Dx/Rx/DC Orders Clinical Impression: Hyperemesis gravidarum before end of 22 week gestation, dehydration Instructions: ED Hyperemesis Gravidarum Prescriptions: New ondansetron [ondansetron] 4 mg tablet,disintegrating 4 mg PO Q8H PRN PRN (Reason: Nausea) Qty: 20 0RF Primary Care Provider: Pancho Soler Referrals: Pancho Soler MD [Primary Care Provider] - Jaci Archer MD [Med Staff - Active Staff] - 3-5 Days if not improving Disposition Disposition: Home, Self Care
[2022-06-06] MEDS: 0.9% Normal Saline 1,000 ML 1000 ML IV (20:31)
[2022-06-06] MEDS: Ondansetron 4 MG/2 ML Vial IV (20:32)
[2022-06-06 21:04] LABS: Anion Gap 7 (5-15); BUN 6 mg/dL (7-18); BUN/Creat Ratio 8.2 RATIO (10-20); Calcium,Total 9.3 mg/dL (8.5-10.1); Chloride 106 mmol/L (98-107); Creatinine, Serum 0.73 mg/dL (0.55-1.02); EST Glomerular Filtration Rate 104 mL/min (>60); Est Glom Filt Rate - Afr Amer 126 mL/min (>60); Estimated Creatinine Clearance 116.55 ml/min; Glucose 92 mg/dL (74-106); Potassium 3.2 mmol/L (3.5-5.1); Sodium Level 137 mmol/L (136-145)
[2022-06-06 21:16] LABS: Red Blood Cells-Urine 0 SEEN /hpf (0-5); White Blood Cells 0 SEEN /hpf (0-5)
[2022-06-06 21:39] LABS: Color, Urine Yellow (Yellow); Glucose, Dipstick Normal (Normal); Ketone-Dipstick Negative (Negative); Leukocyte Esterase-Dipstick Negative /ul (Negative); Nitrite-Dipstick Negative (Negative); Occult Blood-Urine Negative /ul (Negative); Protein-Dipstick Negative (Negative); Specific Gravity, Urine 1.015 (1.002-1.030); Urine Bilirubin Dipstick Negative (Negative); Urine Clarity Clear (Clear); Urine Urobilinogen 1 mg/dl (Normal); Urine pH 6.5 (5.0 - 8.0)
[2022-06-06 21:51] LABS: Bacteria 1+ /hpf (None Seen); Squamous Epithelial Cells - UA 0-5 SEEN /hpf (5-10)
[2022-06-06 21:52] LABS: Mucous, Urine 1+ /hpf (<or=2+)
== END 2022-06-06 21:58 | disposition home or self-care (01) ==
PROVIDERS: Emergency Provider Emergency Medicine; PCP Family Medicine; Visit Provider Emergency Medicine
DX: O99.282 Endocrine, nutritional and metabolic diseases complicating pregnancy, second trimester (principal); O21.1 Hyperemesis gravidarum with metabolic disturbance; E86.0 Dehydration; Z3A.22 22 weeks gestation of pregnancy
CPT/HCPCS: 80048; 81001; 96361; 96374; 99283; J7030; A4216; J2405

== ENCOUNTER → 2022-06-14 | Outpatient (CLI) | payer MEDICAID, SELFPAY ==
[2022-06-14 15:06] LABS: Glucose Challenge Gest 1H 50g 122 mg/dL (70-140)
== END | disposition home or self-care (01) ==
PROVIDERS: PCP Family Medicine; Visit Provider Obstetrics & Gynecology
DX: Z34.81 Encounter for supervision of other normal pregnancy, first trimester (principal)
CPT/HCPCS: 36415; 82950

== ENCOUNTER 2022-08-15 13:28 | Emergency (ER) | payer MEDICAID, SELFPAY ==
[2022-08-15 13:29] VITALS: BP 145/95; PULSE 72; RESP 16; TEMP 35.7; O2SAT 97; BMI 40.7
--- NOTE | 2022-08-15 14:24 | EX.ED.VIS.UR ---
HPI HPI - URI History of Present Illness Chief Complaint: Sore Throat Informant: patient Associated Symptoms Associated Symptoms: Positive for Nasal Congestion, Headache and Nonproductive cough Narrative Narrative: Patient is a 22-year-old female who is currently 22 weeks (follows with Dr. Gianni German) presenting with a week of upper respiratory symptoms. Patient states she has had head pounding, dry throat, nonproductive cough, increase in her reflux symptoms, chills and feels that she is choking on the dryness in her throat. She is tried mucj-rim-ayphgyc throat sprays, tea with honey, cough medicine and Tylenol with no significant relief. Her has been complicated by hyperemesis gravidarum and all the coughing is making her throw up. She does have Zofran for this. She does have a history of strep throats and had it 3 times last year. She does, that she does not always test positive for strep. She came in for further evaluation. No other complaints at this time. ROS ROS ED Constitutional Constitutional ED: Reports chills, fever(s), subjective and sweats Eyes Eyes: Denies change in vision ENT ENT ED: Reports sore throat and other Details: dry throat ; Denies ear pain or rhinorrhea Cardiovascular Cardiovascular: Denies chest pain or palpitations Respiratory/Chest Respiratory/Chest: Reports cough; Denies dyspnea or dyspnea on exertion Gastrointestinal Gastrointestinal: Reports nausea and vomiting; Denies abdominal pain Genitourinary Genitourinary ED: Reports other Details: No vaginal bleeding, no leakage of fluids ; Denies dysuria or hematuria Musculoskeletal Musculoskeletal: Denies arthralgias or myalgias Integumentary Denies rash Neurologic Neurologic: Reports headache(s); Denies weakness Psychiatric Psychiatric: Denies anxiety or depression [facility] Medical History Anxiety and depression PTSD (post-traumatic stress disorder) Home Medications ondansetron 4 mg disintegrating tablet 4 mg PO Q8H PRN PRN Nausea #20 tabs 06/06/22 [Rx Last Taken Unknown] lisdexamfetamine 40 mg capsule (Vyvanse) 40 mg PO DAILY 08/15/22 [History Last Taken Unknown] Allergy/AdvReac Type Severity Reaction Status Date / Time [facility]ESSSING Allergy Hives Uncoded 08/15/22 13:31 Social History household members: significant other and children Smoking Status: Never smoker substance use type: does not use EXAM Physical Exam Const Vital Signs: 08/15/22 13:29 08/15/22 14:26 08/15/22 15:43 Temperature 96.2 F L Temperature Source Temporal Pulse Rate 72 69 Respiratory Rate 16 17 Blood Pressure 145/95 H 123/72 H Blood Pressure Mean 111 89 Pulse Ox 97 98 Oxygen Delivery Method Room Air Positive well nourished and well developed General Appearance ED: well developed and NAD HEENT Reports moist mucous membranes HEENT Narrative: Or enlargement of the tonsils. No tonsillar exudate. There is some punctate erythema in the oropharynx and the soft palate. Uvula is midline. Normal phonation. No significant nasal congestion. Normal tympanic membranes bilaterally. Eyes PERRL and EOMs intact bilaterally Neck supple and no JVD Resp normal respiratory effort and clear to auscultation bilaterally Auscultation: Negative for wheezes Cardio no murmurs Rate: regular rate Rhythm: regular rhythm GI GI Narrative: Gravid abdomen Back/Spine no CVA tenderness Neuro oriented x3 Sensorium / Orientation: alert Motor Exam: Negative for general weakness Psych mental status grossly normal Skin Lesions: no lesions Rashes: no rashes MDM MDM MDM Narrative Medical decision making narrative: Patient is awake for 1 week of sore throat and URI symptoms. History is complicated only by the fact that she is 22 weeks . She appears nontoxic. Initial blood pressure is 145/95 and will repeat as she is . This could be falsely elevated. Will obtain heart tones as well. We will test for strep in case this is strep pharyngitis and she requires antibiotics and will also test for influenza as well as COVID. I do not think a chest x-ray is indicated as she has normal breath sounds. I do not think there is further prescription symptomatic treatments that is also low enough risk given that she is in her second trimester . Discharge Plan Triage Chief Complaint: Sore Throat ED Provider: Laina Queen Dx/Rx/DC Orders Clinical Impression: URI (upper respiratory infection), 22 weeks gestation of Instructions: ED URI, Viral, No Abx (Adult) Prescriptions: No Action ondansetron [ondansetron] 4 mg tablet,disintegrating 4 mg PO Q8H PRN PRN (Reason: Nausea) Qty: 20 0RF Vyvanse 40 mg capsule 40 mg PO DAILY Primary Care Provider: Pancho Soler Referrals: Pancho Soler MD [Primary Care Provider] - Activity Restrictions/Additional Instructions: Recommend using nasal saline or Britney pot to help with your symptoms. Continues humidified oxygen. Continue fukb-nqw-lzazugt treatments including Mucinex and throat spray. You can use [id number] Tylenol. Benadryl might make you sleepy might help dry up some of your secretions. Disposition Disposition: Home, Self Care Discharge Date/Time: 08/15/22 15:43
[2022-08-15 14:26] VITALS: BP 123/72
[2022-08-15 15:43] VITALS: PULSE 69; RESP 17; O2SAT 98
== END 2022-08-15 15:43 | disposition home or self-care (01) ==
PROVIDERS: Emergency Provider Emergency Medicine; PCP Family Medicine; Visit Provider Emergency Medicine
DX: O99.512 Diseases of the respiratory system complicating pregnancy, second trimester (principal); J06.9 Acute upper respiratory infection, unspecified; Z3A.22 22 weeks gestation of pregnancy
CPT/HCPCS: 87428; 87880; 99282

== ENCOUNTER → 2022-10-07 | Outpatient (CLI) | payer MEDICAID, SELFPAY ==
[2022-10-07 11:31] LABS: Absolute Neutrophil Count 6.3 X10^3/uL (2.0-7.7); Basophil# 0.02 X10^3/uL; Basophil% 0.2 % (0-1); Eosinophil# 0.11 X10^3/uL; Eosinophils% 1.2 % (0-5); Hematocrit 39.3 % (37-47); Lymphocyte % 21.7 % (19-41); Mean Corp Hgb Conc 33.1 g/dL (32-36); Mean Corpuscular Hgb 29.6 pg (27.0-32.0); Mean Corpuscular Volume 89.5 fL (81-99); Mean Platelet Vol. 10.7 fl (6.2-12.0); Monocyte# 0.68 X10^3/uL; Monocyte% 7.4 % (0-10); NRBC Flagged by Analyzer 0 % (0-5); Neutrophil # 6.34 X10^3/uL (2.7-7.7); Neutrophil % 68.8 % (47-70); Platelet Count 249 K/mm3 (150-450); RBC Distribution Width CV 13.6 % (11.6-14.6); RBC Distribution Width SD 44.6 fl (35.1-43.9); Red Blood Count 4.39 M/mm3 (4.2-5.4); White Blood Count 9.2 K/mm3 (4.4-11.0)
[2022-10-07 11:36] LABS: Glucose Challenge Gest 1H 50g 115 mg/dL (70-140)
== END | disposition home or self-care (01) ==
LOC: WOBLAB 10:53
PROVIDERS: PCP Family Medicine; Visit Provider Obstetrics & Gynecology
DX: Z34.83 Encounter for supervision of other normal pregnancy, third trimester (principal)
CPT/HCPCS: 36415; 82950; 85025

== ENCOUNTER 2022-10-16 17:55 | Outpatient (CLI) | payer MEDICAID, SELFPAY ==
[2022-10-16 18:14] VITALS: TEMP 36.9
[2022-10-16 18:15] VITALS: BP 113/58; PULSE 84
[2022-10-16 18:17] VITALS: BMI 44.7
[2022-10-16] MEDS: Acetaminophen 500 MG Tablet 1000 MG PO (18:57)
[2022-10-16 19:38] VITALS: PULSE 79; O2SAT 96
[2022-10-16 19:39] VITALS: BP 118/72; PULSE 81; TEMP 36.4
--- NOTE | 2022-10-18 01:41 | PCM.PN.OB ---
Subjective Subjective 22-year-old at 30/2 weeks presenting with some abdominal discomfort and headache. Headache was mild, no visual disturbances. Abdominal pain described as not like labor contractions, nothing timeable. Upper abdominal. Patient also reported decreased movement. Upon arrival patient did report return of normal movement. Objective Data Objective Data Vital Signs: Vital Signs Temp Pulse BP Pulse Ox 97.6 F L 81 118/72 96 10/16/22 19:39 10/16/22 19:39 10/16/22 19:39 10/16/22 19:38 Weight: 129.546 kg Body Mass Index (BMI) 44.7 NST FHR Rate Baby A Baseline: 135 Variability:: Moderate Accelerations:: 15 x 15 and 10 x 10 Decelerations:: None NST Reactive:: Yes Uterine Activity:: quiet Assessment & Plan (1) Decreased movement: PLAN: Decreased movement resolved. Headache and abdominal discomfort resolved with Tylenol. status reassuring and NST reactive. Discharged home with precautions and kick counts. Patient had follow-up appointment on 10/18 in office.
== END 2022-10-16 20:19 | disposition home or self-care (01) ==
LOC: WPOUT 18:00 → WP 18:00
PROVIDERS: PCP Family Medicine; Visit Provider Student in an Organized Health Care Education/Training Program
DX: O36.8130 Decreased fetal movements, third trimester, not applicable or unspecified (principal); O26.893 Other specified pregnancy related conditions, third trimester; R10.9 Unspecified abdominal pain; Z3A.30 30 weeks gestation of pregnancy; R51.9 Headache, unspecified
CPT/HCPCS: 59025; 59050; 99221; G0378

== ENCOUNTER → 2022-11-25 | Outpatient (CLI) | payer MEDICAID, SELFPAY ==
[2022-11-25 16:37] LABS: Hemoglobin 12.6 g/dL (12.0-15.0); Mean Corp Hgb Conc 34.1 g/dL (32-36); Mean Corpuscular Hgb 29.8 pg (27.0-32.0); Mean Corpuscular Volume 87.5 fL (81-99); Mean Platelet Vol. 10.5 fl (6.2-12.0); Platelet Count 248 K/mm3 (150-450); RBC Distribution Width CV 13.2 % (11.6-14.6); RBC Distribution Width SD 41.8 fl (35.1-43.9); Red Blood Count 4.23 M/mm3 (4.2-5.4); White Blood Count 8.8 K/mm3 (4.4-11.0)
[2022-11-25 17:22] LABS: Syphilis Antibodies Non-reactive
== END | disposition home or self-care (01) ==
LOC: WOBLAB 16:08
PROVIDERS: PCP Family Medicine; Visit Provider Obstetrics & Gynecology
DX: Z34.83 Encounter for supervision of other normal pregnancy, third trimester (principal); Z36.85 Encounter for antenatal screening for Streptococcus B
CPT/HCPCS: 36415; 85027; 86780; 87081

== ENCOUNTER 2022-12-04 15:15 | Outpatient (CLI) | payer MEDICAID, SELFPAY ==
[2022-12-04 15:42] VITALS: BMI 46.0
--- NOTE | 2022-12-05 10:00 | PCM.PN.OB ---
Subjective Subjective 37 weeks. Here for back pain to rule out labor. Objective Data Objective Data Vital Signs: Weight: 133.356 kg Body Mass Index (BMI) 46.0 Physical Exam Narrative: cervix cl/th/high per RN NST FHR Rate Baby A Baseline: 125 Variability:: Moderate Accelerations:: 15 x 15 Decelerations:: None NST Reactive:: Yes Uterine Activity:: rare Assessment & Plan (1) Back pain affecting : PLAN: MSK of . Supportive care: warm baths, tylenol, stretching, belly band. Not in labor. Discharged home with precautions. follow up this week in office.
== END 2022-12-04 16:34 | disposition home or self-care (01) ==
LOC: WPOUT 15:21 → WP 15:21
PROVIDERS: PCP Family Medicine; Visit Provider Student in an Organized Health Care Education/Training Program
DX: O99.891 Other specified diseases and conditions complicating pregnancy (principal); M54.9 Dorsalgia, unspecified; Z3A.37 37 weeks gestation of pregnancy; Z79.899 Other long term (current) drug therapy
CPT/HCPCS: 59025; 59050; 99221; G0378

== ENCOUNTER 2022-12-07 21:11 | Inpatient (IN) | payer MEDICAID, SELFPAY ==
[2022-12-07] VITALS (7 sets, daily range): BP systolic 107–136; BP diastolic 59–69; PULSE 65–84; RESP 16–17; TEMP 36.4–36.8; O2SAT 97–98; BMI 45.6
[2022-12-07 21:08] LABS: ROM Internal Control Test YES-OK TO RESULT pt. (Internal QC); ROM Patient Test POSITIVE (Negative)
--- NOTE | 2022-12-07 21:31 | PCM.HP.BLA ---
History and Physical Date of Admission: 12/07/22 Chief complaint: Leakage of fluid History of present illness: 22-year-old G2, P1 at 37 weeks and 5 days with SANDRA 12/23/2022 arrives with leakage of clear fluid that started an unknown time and date. Denies headache, vision changes, chest pain, shortness of breath, nausea vomit, right upper quadrant pain. Patient states good movement. is complicated by history of section, history of PTSD, BMI 45, THC use Obstetric history: G1: Term primary section for failure to progress G2: Current Past medical history: PTSD Medications: Medical marijuana, Vyvanse Past surgical history: section Allergies: No known drug allergies Social history: Denies smoking, uses medical marijuana, denies alcohol use Family history: Denies history DVT or PE Review of systems: Besides above pertinent positives a full review of systems was performed and found to be negative Physical exam: Vitals: Blood pressure 124/63 pulse 69 General: Normal-appearing no acute distress HEENT: Normocephalic/atraumatic no cervical lymphadenopathy Cardiac/respiratory: No use accessory muscles, nonlabored breathing Abdomen: Soft, nontender, gravid Extremities: No peripheral edema normal peripheral pulses Psych: Normal affect and remainder nonpressured speech Labs: ROM positive Assessment and plan: 22-year-old G2, P1 at 37 weeks and 5 days with spontaneous rupture of membranes at unknown time and date. Overall denies fevers, chills. Patient afebrile. Based on SROM and history of section for repeat section bilateral tubal ligation with desires permanent sterilization. Patient understands risk of the procedure include but are not limited to visceral vascular injury, prolonged hospitalization, blood loss need for transfusion, reoperation. Patient state understanding wish to proceed. All questions were answered and consent was signed. All questions answered for patient and partner. Patient for 3 g Ancef and 500 mg of azithromycin. For section now
[2022-12-07] MEDS: Lactated Ringers 1,000 ML 999 ML IV (21:35)
[2022-12-07 21:52] LABS: Absolute Lymphocyte Count 2.87 X10^3/uL (0.83-4.51); Absolute Neutrophil Count 7.6 X10^3/uL (2.0-7.7); Basophil# 0.04 X10^3/uL; Basophil% 0.3 % (0-1); Eosinophil# 0.08 X10^3/uL; Eosinophils% 0.7 % (0-5); Hematocrit 39.5 % (37-47); Hemoglobin 13.2 g/dL (12.0-15.0); Lymphocyte # 2.87 X10^3/ul (0.83-4.51); Lymphocyte % 24.9 % (19-41); Mean Corp Hgb Conc 33.4 g/dL (32-36); Mean Corpuscular Hgb 29.5 pg (27.0-32.0); Mean Corpuscular Volume 88.2 fL (81-99); Mean Platelet Vol. 10.6 fl (6.2-12.0); Monocyte# 0.86 X10^3/uL; Monocyte% 7.5 % (0-10); NRBC Flagged by Analyzer 0 % (0-5); Neutrophil # 7.63 X10^3/uL (2.7-7.7); Neutrophil % 66.3 % (47-70); Platelet Count 256 K/mm3 (150-450); RBC Distribution Width CV 13.2 % (11.6-14.6); RBC Distribution Width SD 42.7 fl (35.1-43.9); Red Blood Count 4.48 M/mm3 (4.2-5.4); White Blood Count 11.5 K/mm3 (4.4-11.0)
[2022-12-07] MEDS: Acetaminophen 500 MG Tablet 1000 MG PO (22:00)
[2022-12-07] MEDS: Sodium Citrate/Citric Acid 30 ML UDC PO (22:01)
[2022-12-07 22:05] LABS: Amphetamine Urine VISTA NEGATIVE (<1000 ng/mL); Barbiturate Urine VISTA NEGATIVE (< 200 ng/mL); Benzodiazepine Urine VISTA NEGATIVE (< 200 ng/mL); Cocaine Urine VISTA NEGATIVE (< 300 ng/mL); Ecstacy Urine VISTA NEGATIVE (< 500 ng/mL); Methadone Urine VISTA NEGATIVE (< 300 ng/mL); PCP Urine VISTA NEGATIVE (< 25 ng/mL); THC Urine VISTA POSITIVE (< 50 ng/mL); Vista UDS pH Range 5
--- NOTE | 2022-12-07 22:50 | FALS_PTH ---
PATIENT: JASVIR JOHN LOC: [facility] U#:[id number] AGE/SX: ROOM: WP005 RE12/07/[address]: Dr. Gianni German MD : 2000 BED: 1 DIS: 12/09/2022 SPEC #: [id number] RECD: 12/08/22 01:50 STATUS: DESIRE REGorge #: [id number] PACO: 12/07/22 22:[address]: Gianni German DEPT: SURGICAL PATHOLOGY RECD BY: Genoveva Rae ENTERED: 12/08/22 10:15 SP TYPE: FALL TUBES OTHR DR: Dr. Pancho Soler MD Tissues: Fallopian tube Procedures: Surgery Specimen Level II HEADER OPERATION: Tubal ligation PRE-OP DIAGNOSIS: Sterilization TISSUE SUBMITTED: Fallopian tubes, suture through right tube MICROSCOPIC DIAGNOSIS Bilateral fallopian tubes, salpingectomy: Bilateral fallopian tubes, no pathologic diagnosis. See comment. LÁZARO:alicia 12/09/2022 COMMENT The left fallopian tube shows focal decidual changes in the epithelium. MICROSCOPIC DESCRIPTION Slides are reviewed. GROSS DESCRIPTION Received in fixative is one container labeled with the patient's name and designated bilateral fallopian tubes, suture through right tube. The specimen consists of bilateral fallopian tubes including fimbrial ends. The right fallopian tube measures 6.0 cm in length and 0.7 cm in diameter and the left fallopian tube measures 5.0 cm in length and 0.6 cm in diameter. Sections reveal unremarkable cut surfaces. House Superintendent sections are submitted in two cassettes as follows: 1 - right fallopian tube, 2 - left fallopian tube. / LÁZARO:alicia 12/08/2022 TC:4 [facility]: [id number] x2
[2022-12-07 23:07] LABS: Syphilis Antibodies Non-reactive
--- NOTE | 2022-12-07 23:19 | EX.PCM.OBRPT ---
Details Operative Information Date of Procedure: 12/07/22 Pre-Operative Diagnosis: Term, SROM, history of section, desires permanent sterilization Post-Operative Diagnosis: Term, SROM, history of section, desires permanent sterilization deputy building guard #1: Mireya Barreto Findings Description of Procedure: Procedure: Repeat low transverse section Via Pfannenstiel incision, bilateral salpingectomy Surgeon: Gianni German MD Anesthesia: Spinal EBL: 800 cc Urine output: 200 cc none IV fluids: 750 cc Complications: None Specimen: Bilateral fallopian tubes Findings: Female infant in vertex position Apgars 8/9. Normal uterus, tubes, and ovaries. Delivery assisted with vacuum with obesity and limited ability to deliver baby via fundal pressure. Consent: Patient arrives with SROM elects for repeat section Via Pfannenstiel incision and desires permanent sterilization for bilateral salpingectomy. Patient understands risk of the procedure include but are not limited to visceral or vascular injury, prolonged hospitalization, blood loss need for transfusion, reoperation. Patient state understanding wish to proceed. All questions were answered and consent was signed. Procedure: Patient was brought back to the OR where spinal anesthesia was found to be adequate. 3 g Ancef and 500 mg of azithromycin were given for infection prophylaxis. Patient was prepared and draped in a supine position with leftward tilt. A Pfannenstiel incision was made at the skin with a scalpel. The incision was carried down to the fascia with a scalpel. The fascia was excised and extended laterally. Rectus muscle was dissected the midline down to the level of the pubic symphysis. Preperitoneal fatty tissue was noted and peritoneum was entered sharply. Peritoneum was extended superiorly and inferiorly with good visualization of bladder. Bladder blade was inserted and vesicouterine peritoneum was identified. Low transverse hysterotomy was made. Hand was placed into the incision and gentle fundal pressure was attempted with limited success due to obesity Kiwi vacuum was placed at the mid sagittal suture 2 to 3 cm anterior to the posterior fontanelle. Using the vacuum assistance head and shoulders delivered with ease. Cord clamped and cut. Baby handed off to nursing. Placenta delivered via cord traction and fundal massage. IV oxytocin was initiated to facilitate uterine contractions. Uterus was exteriorized and wiped out with dry laparotomy sponge in order to remove remaining placental membranes. Uterus was closed in continuous running fashion. Good hemostasis was noted. Right fallopian tube was identified to the fimbria and the mesosalpinx was cut and cauterized with LigaSure device, fallopian tube was transected at the cornua and sent to pathology. Left fallopian tube was identified to the fimbria and the mesosalpinx was cut and cauterized with LigaSure device, left loping tube was transected at the cornua and sent to pathology. Good hemostasis was noted bilaterally. Uterus was placed back in the abdominal cavity and incision was reinspected, good hemostasis was noted. Linda was placed over the hysterotomy incision. Good hemostasis was noted. Fascia was closed in a continuous running fashion with PDS suture. Subcutaneous irrigation was performed, good hemostasis was noted. Skin was closed in a subcuticular fashion. All counts were correct x2. Patient tolerated procedure well and was brought to recovery in a stable condition.
[2022-12-07] MEDS: Oxytocin 15 Units/NS 250ml 15 UNITS/250 ML IV.SOLN 83 UNITS IV (23:39)
[2022-12-08] VITALS (14 sets, daily range): BP systolic 99–136; BP diastolic 48–77; PULSE 62–82; RESP 15–17; TEMP 36.1–36.8; O2SAT 95–98
[2022-12-08] MEDS: Ketorolac 30 MG/ML Syringe IV ×4 (00:22→19:42)
[2022-12-08] MEDS: oxyCODONE 5 MG Tablet PO ×5 (01:03→21:54)
[2022-12-08 01:50] LABS: Pathology Specimen OB SEE PATHOLOGY REPORT
[2022-12-08] MEDS: Lactated Ringers 1,000 ML 150 ML IV (02:34)
[2022-12-08] MEDS: Acetaminophen 500 MG Tablet 1000 MG PO ×4 (04:10→21:54)
[2022-12-08 05:20] LABS: Hematocrit 33.5 % (37-47); Hemoglobin 11.4 g/dL (12.0-15.0); Mean Corpuscular Hgb 29.5 pg (27.0-32.0); Mean Corpuscular Volume 86.6 fL (81-99); Mean Platelet Vol. 10.6 fl (6.2-12.0); Platelet Count 217 K/mm3 (150-450); RBC Distribution Width CV 13.2 % (11.6-14.6); RBC Distribution Width SD 41.2 fl (35.1-43.9); Red Blood Count 3.87 M/mm3 (4.2-5.4); White Blood Count 13.6 K/mm3 (4.4-11.0)
[2022-12-08] MEDS: Cefazolin 1 GM/50 ML BAG IV ×2 (06:34→15:43)
--- NOTE | 2022-12-08 08:10 | PN.OBGYN_ITS ---
Subjective Subjective No overnight complaints Objective Data Objective Data Vital Signs: Vital Signs Temp Pulse Resp BP Pulse Ox O2 Del Method 97 F L 72 16 116/64 96 Room Air 12/08/22 07:46 12/08/22 07:46 12/08/22 07:46 12/08/22 07:46 12/08/22 07:46 12/08/22 07:46 Oxygen Delivery Method Room Air Weight: 291 lb 6.4 oz Body Mass Index (BMI) 45.6 Intake & Output: Intake and Output for Last 24 Hours 12/06/22 12/07/22 12/08/22 23:59 23:59 23:59 Intake Total 1115 / 1115 755 / 755 Output Total 300 / 300 1600 / 1600 Balance 815 / 815 -845 / -845 Lab / Micro Data Result Diagrams: 12/08/22 05:10 Labs: Laboratory Results - last 24 hr 12/07/22 20:38: Vag Amniotic Fld Detect POSITIVE H 12/07/22 21:40: WBC 11.5 H, RBC 4.48, Hgb 13.2, Hct 39.5, MCV 88.2, MCH 29.5, MCHC 33.4, RDW Std Deviation 42.7, RDW Coeff of Leighann 13.2, Plt Count 256, MPV 10.6, Immature Gran % (Auto) 0.300, Neut % (Auto) 66.3, Lymph % (Auto) 24.9, [place] % (Auto) 7.5, Eos % (Auto) 0.7, Baso % (Auto) 0.3, Absolute Neuts (auto) 7.6, Absolute Lymphs (auto) 2.87, Nucleated RBC % 0 12/07/22 21:40: Blood Type O POSITIVE, Antibody Screen NEGATIVE 12/07/22 21:40: Syphilis Total Ab Non-reactive 12/07/22 21:40: Urine Opiates Screen NEGATIVE, Urine Methadone Screen NEGATIVE, Ur Barbiturates Screen NEGATIVE, Ur Phencyclidine Scrn NEGATIVE, Ur Amphetamines Screen NEGATIVE, MDMA (Ecstasy) Screen NEGATIVE, U Benzodiazepines Scrn NEGATIVE, Urine Cocaine Screen NEGATIVE, U Cannabinoids Screen POSITIVE H, Ur Drug Screen Comment 12/08/22 05:10: WBC 13.6 H, RBC 3.87 L, Hgb 11.4 L, Hct 33.5 L, MCV 86.6, MCH 29.5, MCHC 34.0, RDW Std Deviation 41.2, RDW Coeff of Leighann 13.2, Plt Count 217, MPV 10.6 Physical Exam Const alert, oriented x3, no apparent distress, average body habitus, healthy appearing and well nourished HEENT normocephalic and moist oral mucous membranes Eyes PERRL Neck full ROM Resp normal respiratory effort, no retractions and no use of accessory muscles GI GI Narrative: Soft, nontender, bandage clean dry and intact Extremity normal to inspection and full ROM Neuro moves all extremities and no focal motor deficits Psych mental status grossly normal, affect normal, speech normal and activity/motor behavior normal Assessment & Plan (1) delivery delivered: PLAN: Postop day 1 status post repeat section bilateral tubal ligation. Breast-feeding. Pain well controlled. Educated patient on postoperative recovery. With BMI on Ancef x24 hours and Lovenox 40 mg twice daily, educated patient on these medications. Possibly home tomorrow
[2022-12-08] MEDS: Senna/Docusate Sodium 1 Tablet PO ×2 (10:54)
[2022-12-08] MEDS: 0.9% Saline Lock 10 ML Syringe IV ×4 (10:57→19:42)
[2022-12-08] MEDS: Enoxaparin 40 MG/0.4 ML Syringe SC ×2 (12:11→21:36)
--- NOTE | 2022-12-08 20:55 | CASEMGMT ---
Social Work Consult received and noted maternal mental health. Chart reviewed. Noted MOB and positive for marijuana. Per nursing, it has been reported MOB may have a medical marijuana card. Will plan to see patient/mother of baby (MOB) on 12.09.22 for assessment, referrals, and resources as indicated. -MICHAEL Hines, ROUTE DRIVER SALESPERSON
[2022-12-09] MEDS: oxyCODONE 5 MG Tablet PO ×3 (02:04→10:58)
[2022-12-09] MEDS: Ibuprofen 600 MG Tablet PO ×2 (02:04→06:48)
[2022-12-09 02:08] VITALS: BP 111/62; PULSE 77; RESP 16; TEMP 36.3; O2SAT 95
[2022-12-09] MEDS: Acetaminophen 500 MG Tablet 1000 MG PO ×2 (03:43→10:59)
--- NOTE | 2022-12-09 06:50 | PCM.DC.BLA ---
Discharge Summary Date of Admission: 12/07/22 Date of Discharge: 12/09/22 Summary: Patient arrived on 12/07/2022 with spontaneous rupture of membranes with a history of section and desires permanent sterilization. Repeat section bilateral tubal ligation performed on 12/07/2022. Patient with routine postoperative recovery and discharged home on 12/09/2022 Meaningful Use Info Meaningful Use Diagnoses (Choose all that apply): None applicable Discharge Plan Admission Admit Date/Time: 12/07/22 21:11 Primary Reason for Your Visit: Spontaneous rupture membranes Attending Provider: Gianni German Primary Care Provider: Pancho Soler Instructions Additional Instructions / Restrictions: Regular diet. Okay for shower. No tub baths for 2 weeks. No intercourse for 6 to 8 weeks. No lifting over 25 pounds for 2 to 3 weeks. Call if fevers, chills, chest pain, shortness of breath. Follow-up 2 weeks postoperatively Discharge Orders/Prescriptions Prescriptions: New oxycodone 5 mg Tablet 5 mg PO Q6H PRN PRN (Reason: Pain Score 7-10) 4 Days Qty: 16 0RF Continued Vyvanse 40 mg capsule 40 mg PO PRN PRN (Reason: ADHD) famotidine 20 mg Tablet 20 mg PO QHS vit-iron fum-folic ac 17-1 mg Tablet 1 tab PO DAILY ondansetron 4 mg tablet,disintegrating 4 mg PO Q6H PRN PRN (Reason: Nausea) Referrals / Follow Up: Pancho Soler MD [Primary Care Provider] - Disposition Disposition (needs filled in before D/C Order can be placed): Home, Self Care
--- NOTE | 2022-12-09 06:51 | PCM.PN.OB ---
Subjective Subjective No overnight complaints Objective Data Objective Data Vital Signs: Vital Signs Temp Pulse Resp BP Pulse Ox O2 Del Method 97.4 F L 77 16 111/62 95 Room Air 12/09/22 02:08 12/09/22 02:08 12/09/22 02:08 12/09/22 02:08 12/09/22 02:08 12/09/22 02:08 Oxygen Delivery Method Room Air Weight: 291 lb 6.4 oz Body Mass Index (BMI) 45.6 Intake & Output: Intake and Output for Last 24 Hours 12/07/22 12/08/22 12/09/22 23:59 23:59 23:59 Intake Total 1115 / 1115 1805 / 1805 Output Total 300 / 300 1600 / 1600 Balance 815 / 815 205 / 205 Lab / Micro Data Result Diagrams: 12/08/22 05:10 Physical Exam Const alert, oriented x3, no apparent distress, average body habitus, healthy appearing and well nourished HEENT normocephalic and moist oral mucous membranes Eyes PERRL Neck full ROM Resp normal respiratory effort, no retractions and no use of accessory muscles GI GI Narrative: Soft, nontender, bandage clean dry and intact Extremity normal to inspection and full ROM Neuro moves all extremities and no focal motor deficits Psych mental status grossly normal, affect normal, speech normal and activity/motor behavior normal Assessment & Plan (1) delivery delivered: PLAN: Postoperative day 2 status post repeat section bilateral tubal ligation. Breast-feeding. Pain well controlled. Okay to discharge home today
[2022-12-09 08:07] VITALS: BP 119/63; PULSE 71; RESP 16; TEMP 36.4; O2SAT 96
[2022-12-09] MEDS: Enoxaparin 40 MG/0.4 ML Syringe SC (10:59)
[2022-12-09] MEDS: Senna/Docusate Sodium 1 Tablet PO (10:59)
[2022-12-09 12:19] VITALS: BP 123/79; PULSE 81; RESP 18; TEMP 37; O2SAT 97
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
--- NOTE | 2022-12-09 17:28 | CASEMGMT ---
Social Work Labor and Delivery Unit Called [facility] children services at [phone]. Spoke with Paty Mayo (extension [phone]) in the intake department. Referral given due to infant exposure to substances in utero. Reported both maternal and 's drug screens positive for marijuana. Meconium pending. included in report MOB's reports to have a medical marijuana card though this [place] underwriter's observation that the medical marijuana card in January 2022. Brief maternal and infant histories reported including maternal mental health of which MOB reports is treated by the counseling center. Let children services know, there were no voiced concerns regarding parent-child interactions or bonding during hospital stay. Updated to MOB's reported safe plan of care, and MOB's intends to continue breast-feeding infant. We will monitor for meconium drug screen results. Plan: Mother of baby and infant have both been discharged. Community resource information was provided prior to home-going. Children services has been notified. -CLARICE Hines, ELECTRICIAN HELPER AUTOMOTIVE *This note was generated with Nudgeation software. It may contain incorrect words, spelling, and punctuation that were not noted in review of the chart prior to signing*
== END 2022-12-09 12:30 | disposition home or self-care (01) | DRG 539 ==
LOC: WPOUT 21:13 → WP 22:56
PROVIDERS: Admitting Provider Obstetrics & Gynecology; PCP Family Medicine; Visit Provider Obstetrics & Gynecology
DX: O34.211 Maternal care for low transverse scar from previous cesarean delivery (principal); M54.9 Dorsalgia, unspecified; O99.891 Other specified diseases and conditions complicating pregnancy; Z30.2 Encounter for sterilization; Z37.0 Single live birth; Z3A.37 37 weeks gestation of pregnancy; Z79.899 Other long term (current) drug therapy
CPT/HCPCS: 59025; 59050; 80307; 84112; 85025; 85027; 86780; 86850; 86900; 86901; 88302; 99221; J7120; A4216; G0378

== ENCOUNTER → 2023-05-02 | Outpatient (CLI) | payer MEDICAID, SELFPAY ==
[2023-05-08 19:57] LABS: HPV Reflexed? NOT INDICATED
== END | disposition home or self-care (01) ==
LOC: LABSPEC 14:28
PROVIDERS: PCP Family Medicine; Referring Provider Obstetrics & Gynecology; Visit Provider Obstetrics & Gynecology
DX: Z12.4 Encounter for screening for malignant neoplasm of cervix (principal)
CPT/HCPCS: 88175; G0145

== ENCOUNTER 2025-08-11 08:36 | Emergency (ER) | payer OTHER, SELFPAY ==
[2025-08-11 08:38] VITALS: BP 146/91; PULSE 107; RESP 20; TEMP 36.8; O2SAT 98
--- NOTE | 2025-08-11 08:53 | EDS_ITS ---
HPI History of Present Illness Chief Complaint: Shortness of Breath Narrative Narrative: 25-year-old female history of asthma presents emergency department for complaint sore throat and congestion. Patient states that she has been having to use her inhaler more often and having cough congestion and watery eyes and sore throat. States that her sore throat makes her feel short of breath. Denies any wheezing, chest pain. Reported fever of 101 ?F on but no subsequent fevers. Symptoms that started . PFSH PFS Medical History Anxiety and depression PTSD (post-traumatic stress disorder) Home Medications ?Medication ?Instructions ?Recorded ?Last Taken ?Type lisdexamfetamine 40 mg capsule 40 mg PO PRN PRN ADHD 0 08/15/22 12/06/22 08:00 History (Vyvanse) famotidine 20 mg tablet 20 mg PO QHS heartburn 10/1612/06/22 08:00 History ondansetron 4 mg disintegrating 4 mg PO Q6H PRN PRN Na usea 10/16/22 12/07/22 05:30 History tablet vit with calcium-iron 1 tab PO DAILY pregnanc y 10/16/22 12/06/22 08:00 History fum-folic acid 17 mg-1 mg tablet oxycodone 5 mg tablet 5 mg PO Q6H PRN PRN Pain Sco re 12/08/22 Unknown Rx 7-10 4 days #16 tabs Allergy/AdvReac Type Severity Reaction Status Date / Time Food Allergies: Uncoded Allergy NEEDS Verified 08/11/25 08:41 FOLLOW-UP Social History household members: significant other and children Smoking Status: Current every day smoker substance use type: does not use EXAM Physical Exam Const Vital Signs: 08/11/25 08:38 Temperature 98.2 F Temperature Source Oral Pulse Rate 107 H Respiratory Rate 20 H Blood Pressure 146/91 H Blood Pressure Mean 109 Pulse Ox 98 Oxygen Delivery Method Room Air HEENT Reports rhinorrhea normocephalic Mouth ED: Yes moist mucous membranes abnormal and Yes other Mouth: moist mucous membranes abnormal and other Other Details: uvula midline, erythema and exudate in posterior oropharynx Throat: uvula midline and posterior oropharynx abnormal Positive for erythema and exudates Eyes PERRL and EOMs intact bilaterally Eyes Narrative: bilateral conjunctival injection. No discharge Neck General: Negative for lymphadenopathy Lymph Lymphatic: no lymphadenopathy noted Resp normal respiratory effort Effort and Inspection: able to speak in complete sentences and symmetric chest movement; Negative for actively coughing, retractions, uses accessory muscles or audible wheezes Auscultation: Negative for wheezes Cardio regular rate and no murmurs MDM MDM MDM Narrative Medical decision making narrative: 25-year-old female history of asthma presents emergency department for complaint sore throat and congestion. Patient states that she has been having to use her inhaler more often and having cough congestion and watery eyes and sore throat. States that her sore throat makes her feel short of breath. Denies any wheezing, chest pain. Reported fever of 101 ?F on Bailee Day but no subsequent fevers. Symptoms that started . Lab Data Attestation: I reviewed the patient's lab results. Discharge Plan Triage Chief Complaint: Shortness of Breath ED Provider: Tete Schaefer Dx/Rx/DC Orders Prescriptions: No Action Vyvanse 40 mg capsule 40 mg PO PRN PRN (Reason: ADHD) famotidine 20 mg Tablet 20 mg PO QHS vit-iron fum-folic ac 17-1 mg Tablet 1 tab PO DAILY ondansetron 4 mg tablet,disintegrating 4 mg PO Q6H PRN PRN (Reason: Nausea) oxycodone 5 mg Tablet 5 mg PO Q6H PRN PRN (Reason: Pain Score 7-10) 4 Days Qty: 16 0RF Primary Care Provider: Panhco Soler Referrals: Pancho Soler MD [Primary Care Provider, Family Practice] Print Language: Honduran
--- NOTE | 2025-08-11 08:53 | EX.ED.DYSGE1 ---
HPI History of Present Illness Chief Complaint: Shortness of Breath Narrative Narrative: 25-year-old female history of asthma presents emergency department for complaint sore throat and congestion. Patient states that she has been having to use her inhaler more often and having cough congestion and watery eyes and sore throat. States that her sore throat makes her feel short of breath. Denies any wheezing, chest pain. Reported fever of 101 ?F on but no subsequent fevers. Symptoms that started . PFSH PFSH Medical History Anxiety and depression PTSD (post-traumatic stress disorder) Home Medications ?Medication ?Instructions ?Recorded ?Last Taken ?Type lisdexamfetamine 40 mg capsule 40 mg PO PRN PRN ADHD 08/15/22 12/06/22 08:00 History (Vyvanse) famotidine 20 mg tablet 20 mg PO QHS heartburn 10/16/22 12/06/22 08:00 History ondansetron 4 mg disintegrating 4 mg PO Q6H PRN PRN Nausea 10/16/22 12/07/22 05:30 History tablet vit with calcium-iron 1 tab PO DAILY 10/16/22 12/06/22 08:00 History fum-folic acid 17 mg-1 mg tablet oxycodone 5 mg tablet 5 mg PO Q6H PRN PRN Pain Score 12/08/22 Unknown Rx 7-10 4 days #16 tabs Allergy/AdvReac Type Severity Reaction Status Date / Time Food Allergies: Uncoded Allergy NEEDS Verified 08/11/25 08:41 FOLLOW-UP Social History household members: significant other and children Smoking Status: Unknown if ever smoked substance use type: does not use EXAM Physical Exam Const Vital Signs: 08/11/25 08:38 08/11/25 09:22 08/11/25 10:33 Temperature 98.2 F 98.6 F Temperature Source Oral Pulse Rate 107 H 84 Respiratory Rate 20 H 16 Respiratory Effort Normal Respiratory Pattern Tachypnea Blood Pressure 146/91 H 140/72 H Blood Pressure Mean 109 94 Pulse Ox 98 99 Oxygen Delivery Method Room Air 08/11/25 10:35 Temperature 98.6 F Temperature Source Pulse Rate 84 Respiratory Rate 16 Respiratory Effort Respiratory Pattern Blood Pressure 140/72 H Blood Pressure Mean 94 Pulse Ox 99 Oxygen Delivery Method HEENT Reports rhinorrhea normocephalic Mouth ED: Yes moist mucous membranes abnormal and Yes other Mouth: moist mucous membranes abnormal and other Other Details: uvula midline, erythema and exudate in posterior oropharynx Throat: uvula midline and posterior oropharynx abnormal Positive for erythema and exudates Eyes PERRL and EOMs intact bilaterally Eyes Narrative: bilateral conjunctival injection. No discharge Neck General: Negative for lymphadenopathy Lymph Lymphatic: no lymphadenopathy noted Resp normal respiratory effort Effort and Inspection: able to speak in complete sentences and symmetric chest movement; Negative for actively coughing, retractions, uses accessory muscles or audible wheezes Auscultation: Negative for wheezes Cardio regular rate and no murmurs MDM MDM MDM Narrative Medical decision making narrative: 25-year-old female history of asthma presents emergency department for complaint sore throat and congestion. Patient states that she has been having to use her inhaler more often and having cough congestion and watery eyes and sore throat. States that her sore throat makes her feel short of breath. Denies any wheezing, chest pain. Reported fever of 101 ?F on Day but no subsequent fevers. Symptoms that started .Physical exam patient does have some nasal congestion and sinus tenderness throughout. Conjunctival injection with no evidence of discharge. Pupils equal reactive to light. Throat shows some erythema and exudate with posterior oropharynx cobblestoning. Uvula midline no evidence of posterior tonsillar or peritonsillar abscess. Speaking in full sentences with no voice changes. Vitals within normal limits. Saturating 100% on room air with no wheezing rhonchi or abnormal breath sounds will suspicion for pneumonia do not feel that x-ray imaging is needed at this time. Will give Tylenol to help with symptoms. Viral swabs negative for flu RSV and COVID and negative for strep pharyngitis. Suspect likely viral symptoms. Also suspect viral conjunctivitis do not feel that antibiotics needed at this time. Discharge instructions given the patient and recommending supportive measures with Tylenol ibuprofen and and return precautions given. Lab Data Attestation: I reviewed the patient's lab results. Lab results narrative: Strep PCR negative and COVID, RSV and influenza swabs negative. Discharge Plan Triage Chief Complaint: Shortness of Breath ED Provider: Schaefer,Tete Dx/Rx/DC Orders Clinical Impression: Viral URI, Sore throat, Acute viral conjunctivitis of both eyes Prescriptions: No Action Vyvanse 40 mg capsule 40 mg PO PRN PRN (Reason: ADHD) famotidine 20 mg Tablet 20 mg PO QHS vit-iron fum-folic ac 17-1 mg Tablet 1 tab PO DAILY ondansetron 4 mg tablet,disintegrating 4 mg PO Q6H PRN PRN (Reason: Nausea) oxycodone 5 mg Tablet 5 mg PO Q6H PRN PRN (Reason: Pain Score 7-10) 4 Days Qty: 16 0RF Stand Alone Forms: ED Work / School Excuse Primary Care Provider: Pancho Soler Referrals: Pancho Soler MD [Primary Care Provider, Family Practice] Activity Restrictions/Additional Instructions: Please follow-up with your primary care provider within the next 2 to 3 days regarding your visit today. Return to the emergency department developing worsening symptoms, fevers currently for Tylenol or wheezing not relieved with albuterol inhaler. If you develop any thick discharge coming from your eyes will likely need antibiotics at that time, but currently believe that this is a viral conjunctivitis. Print Language: Latvian Disposition Disposition: Home, Self Care Discharge Date/Time: 08/11/25 10:36
[2025-08-11 10:33] VITALS: BP 140/72; PULSE 84; RESP 16; TEMP 37; O2SAT 99
[2025-08-11 10:35] VITALS: BP 140/72; PULSE 84; RESP 16; TEMP 37; O2SAT 99
== END 2025-08-11 10:36 | disposition home or self-care (01) ==
PROVIDERS: Emergency Provider Student in an Organized Health Care Education/Training Program; PCP Family Medicine; Visit Provider Student in an Organized Health Care Education/Training Program
DX: R06.02 Shortness of breath (principal); B30.9 Viral conjunctivitis, unspecified; J02.9 Acute pharyngitis, unspecified
CPT/HCPCS: 87631; 87651; 99282